=== PATIENT | female | born 1975 | race Caucasian/White ===

== ENCOUNTER 2019-01-12 13:47 | Emergency (ER) | payer OTHER ==
[~2019-01-12] VITALS: Ht 154.9 cm; Wt 96.2 kg
[2019-01-12 13:58] VITALS: BP 150/80
[2019-01-12] MEDS ORDERED: KETOROLAC 30 MG/ML VIAL. IM STA (14:38)
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
[2019-01-12] MEDS ORDERED: ORPH100T PO (15:32)
== END 2019-01-12 15:36 | disposition home or self-care (01) ==
LOC: ER 13:47
DX: M54.6 Pain in thoracic spine (principal); G89.11 Acute pain due to trauma; V46.4XXA Person boarding or alighting a car injured in collision with other nonmotor vehicle, initial encounter; Y92.488 Other paved roadways as the place of occurrence of the external cause; Y93.89 Activity, other specified; Y99.8 Other external cause status
CPT/HCPCS: 72128; 96372; 99284; J1885